=== PATIENT | male | born 1985 | race African-American/Black ===

== ENCOUNTER 2023-01-02 20:00 | Emergency (ER) | payer OTHER, MEDICAID ==
[~2023-01-02] VITALS: Ht 180.3 cm; Wt 105.0 kg
[~2023-01-02 20:00] MED LIST: CALCIUM CHLORIDE 1GM/10ML SYR IV ONE; EPINEPHRINE 0.1MG/ML (1:10,000) 10ML SYR ONE; ETOMIDATE 2MG/ML 10ML VIAL IV ONE; SODIUM BICARBONATE 8.4% 1 MEQ/ML 50ML SYR IV ONE
[2023-01-02 20:04] VITALS: BP 0/0
== END 2023-01-02 22:40 ==
LOC: ER 20:00
DX: I46.9 Cardiac arrest, cause unspecified (principal)
CPT/HCPCS: 31500; 82962; 99291; J3490